=== PATIENT | female | born 2005 | race African-American/Black ===

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

== ENCOUNTER 2024-05-09 10:54 | Emergency (ER) | payer MEDICAID, SELFPAY ==
[2024-05-09 10:57] VITALS: BP 160/93; PULSE 93; RESP 16; TEMP 36.7; O2SAT 100
--- NOTE | 2024-05-09 11:18 | ED.ALLEREA ---
HPI - Allergic Reaction General Chief complaint: Allergic Reaction Stated complaint: Itching X 2 days Time Seen by Provider: 05/09/24 10:59 History of Present Illness HPI narrative: 18-year-old female presents to the emergency department for itching throughout her body for 2 days. Patient states she is itchy all over her face and extremities, back and abdomen. She states she has not seen any rashes or lesions, no oral lesions. She denies fever, nausea vomiting abdominal pain or other symptoms. States approximately 2 days ago before the onset of symptoms she bought new scrubs and is curious that this may be the source of her itching. States she took her scrubs off but her itching did not improve. States no one in her household has the same symptoms. She denies known exposures or changes in lotions, detergents medications etc.. She does state that she has been taking Zyrtec or Claritin without improvement. Related Data Allergies Allergy/AdvReac Type Severity Reaction Status Date / Time No Known Allergies Allergy Verified 01/21/23 22:00 Review of Systems Review of Systems: All systems reviewed & are unremarkable except as noted in HPI and below PMFSH Past Medical History Medical History Obesity (BMI 30-39.9) Obstructive sleep apnea Surgical History Surgical History No pertinent past surgical history Family History Family History Sibling Immunodeficiency Mother Healthy female Father Gunshot wound Social History Social History Social History: The patient lives at home with her mother and siblings. 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 Code status: Full code Surrogate decision maker: Mother Smoking status: Never smoker Alcohol intake: never Substance use: never Lack of Transportation: No Lack of Food: Never True Current Housing: I Have Housing Concerned About Future Housing: No Difficulty Paying Gas/Electric Bills: No Difficulty Paying for Meds: No Currently Unemployed: No Education: High School Diploma/GED Difficulty w/ Childcare or Family Care: No Living arrangements: with family Additional living arrangements comments: She lives with her mother and siblings. 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 Spiritual care concerns: No Exam Narrative: GENERAL: Well-appearing, well-nourished, and in no acute distress. HEAD: Normocephalic, atraumatic. EYES: No scleral icterus ENT: Nares clear, no rhinorrhea or epistaxis. Mucous membranes moist. no lesions to oropharynx NECK: Supple. CHEST: Clear to auscultation. No respiratory distress. HEART: Regular rate and rhythm. No murmur heard. Normal peripheral pulses. EXTREMITIES: Normal range of motion. No edema. SKIN: Excoriations throughout upper extremities. No hives or lesions, no rash throughout upper lower extremities, face her abdomen. No palmar lesions. No papules or vesicles, no vesicles or burrows and web spaces. no jaundice or scleral icterus NEURO: No focal deficits. Alert and oriented x3 Course Vital Signs Vital signs: Vital Signs Temperature 98.1 F 05/09/24 10:57 Pulse Rate 93 05/09/24 10:57 Respiratory Rate 16 05/09/24 10:57 Blood Pressure 160/93 H 05/09/24 10:57 Pulse Oximetry 100 05/09/24 10:57 Oxygen Delivery Room Air 05/09/24 10:57 Temperature 98.1 F 05/09/24 10:57 Pulse Rate 93 05/09/24 10:57 Respiratory Rate 16 05/09/24 10:57 Blood Pressure 160/93 H 05/09/24 10:57 Pulse Oximetry 100 05/09/24 10:57 Oxygen Delivery Room Air 05/09/24 10:57 MDM - Allergic Reaction MDM Narrative Medical decision making narrative: 18-year-old female pres
[2024-05-09] MEDS: hydrOXYzine HCL 25 MG TABLET PO (11:31)
[2024-05-09] MEDS: predniSONE 20 MG TABLET 60 MG PO (11:32)
== END 2024-05-09 11:38 | disposition home or self-care (01) ==
PROVIDERS: Emergency Provider Physician Assistant; PCP Pediatrics
DX: L29.9 Pruritus, unspecified (principal); G47.33 Obstructive sleep apnea (adult) (pediatric); E66.9 Obesity, unspecified
CPT/HCPCS: 99283; A9270; J7512

== ENCOUNTER 2025-03-22 18:39 | Emergency (ER) | payer BC, SELFPAY ==
--- OUTSIDE RECORDS SUMMARY | 2025-03-22 18:41 | XMS_ITS | Data Portability ---
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 Plan of Treatment Reminders Order Date Submit Date Provider Last Modified By Organization Details Last Modified Time Details Appointments None recorded . Lab hsv (1+2) igm, serum 2021 [facility] (Lab), [address] [place], [address], 3 18:39:47 hsv-1 igg Ab, serum 2021 022 [facility] (Lab), [address] [place], [address], 3 18:39:45 hsv-2 igg Ab, serum 2021 022 [facility] (Lab), [address] [place], [address], 3 18:39:45 hbcab (hepatit is B core Ab) igm, serum 2021 022 [facility] (Lab), [address] [place], [address], 3 18:39:46 HBsAg (hepatit is B surface Ag), serum 2021 022 [facility] (Lab), [address], [place], [address], 3 18:39:44 hepatiti s C virus Ab, serum 2021 [facility] (Lab), [address], [place], [address], 3 18:39:44 unlisted lab - HIV 1/2 antigen/ antibody , reflex confirma tion 2021 [facility] (Lab), [address], [place], [address], 3 18:39:43 RPR (rapid plasma reagin), serum 2021 [facility] (Lab), [address], [place], [address], 3 18:39:45 Referral None recorded . Procedures None recorded . Surgeries None recorded . Imaging None recorded . Medication Orders metronid azole 500 mg tablet 2021 devendra [facility][id number], [address], [place], [place], [id number], 3 13:56:52 Valtrex 1 gram tablet 2021 [email or web address] [facility] #[id number], [address], [place], [place], [id number], 2 12:17:03 Loestrin Fe 1/20 (28-Day) 1 mg-20 mcg (21)/75 mg (7) tablet 2021 [facility] #[id number], [address], [place], [place], [id number], 12:20:31 Patient TargetsNo targets recorded. Patient InstructionsNo instructions recorded. Reason for Referral None Reported. Results Created Date Observation Date Name Description Value Unit Range Abnormal Flag Note LastModifiedBy Organization Detail LastModifiedTime 09/07/20 22 09/07/2022 VAGIN ITIS/ VAGIN OSIS, DNA PROBE shaniqua sp. detection, direct probe Negati ve negati ve Not Available [facility] (Lab) [address], [place], [address], 09/13/2022 21:29:55 09/07/20 22 09/07/2022 VAGIN ITIS/ VAGIN OSIS, DNA PROBE gardnerella vag. detection, direct probe Positi ve negati ve abnormal Not Available [facility] (Lab) [address], [place], [address], 09/13/2022 21:29:55 09/07/20 22 09/07/2022 VAGIN ITIS/ VAGIN OSIS, DNA PROBE trichomonas vag. detection, direct probe Negati ve negati ve Not Available [facility] (Lab) [address], [place], [address], 09/13/2022 21:29:55 09/07/20 22 09/07/2022 CT/GC AND TRICH OMONA S VAGIN MARIA ELENA (RRNA ), SWAB chlamydia trachomatis, PCR Negati ve negati ve Not Available [facility] (Lab) [address], [place], [address], 09/13/2022 21:29:56 09/07/20 22 09/07/2022 CT/GC AND TRICH OMONA S VAGIN MARIA ELENA (RRNA ), SWAB neisseria gonorrhoeae, PCR Negati ve negati ve Not Available [facility] (Lab) [address], [place], [address], 09/13/2022 21:29:56 09/07/20 22 09/07/2022 CT/GC AND TRICH OMONA S VAGIN MARIA ELENA (RRNA ), SWAB trichomonas vaginalis ribosomal RNA (rrna) Negati ve negati ve Not Available [facility] (Lab) [address], [place], [address], 09/13/2022 21:29:56 09/07/20 22 09/07/2022 HSV TYPE 1, REFLE XED hsv 1 ISOLAT ED abnormal REFER ENCE RANGE : NOT ISOLA PHILIP perin eum Perfo rming Organ izati on Infor [facility] emergency department n: Site ID: EZ Name: [facility] , Addre ss: [id number] [place] [place] [facility] [place] [id number] Dire tor: Racheal chan MD,Ph D,SHELDON Not Available [facility] (Lab) [address] [place], [address], 09/13/2022 21:29:56 09/07/20 22 09/07/2022 HSV TYPE 2, REFLE XED hsv 2 NOT ISOLAT ED REFER ENCE RANGE : NOT ISOLA PHILIP perin eum Perfo ing Organ izati on [facility] n: Site ID: EZ Name: [facility] , Addre ss: [id number] [place] [facility] [place] [phone] Dire tor: Racheal chan MD,Ph D,SHELDON Not Available [facility] (Lab) [address] [place], [address], 09/13/2022 21:29:56 09/07/20 22 09/07/2022 CULTU RE: HERPE S SIMPL EX VIRUS (HSV) , REFLE X TYPIN G source PERINE UM Not Available [facility] (Lab) [address] [place], [address], 09/13/2022 21:29:57 09/07/20 22 09/07/2022 CULTU RE: HERPE S SIMPL EX VIRUS (HSV) , REFLE X TYPIN G hsv culture, body fluid ISOLAT ED abnormal REFER ENCE RANGE : NOT ISOLA PHILIP perin eum Perfo rming Organ izati on Infor mat n: Site ID: EZ Name: [facility] , Addre ss: [id number] [place] [id number] Direc tor: Racheal chan MD,Ph D,SHELDON Not Available [facility] (Lab) [address], [place], [address], 09/13/2022 21:29:57 09/07/20 22 09/07/2022 HIV 1/2 ANTIG EN/AN TIBOD Y, REFLE X CONFI RMATI ON HIV antigen/anti body Nonrea ctive nonrea ctive HIV-1 antig en and HIV-1 /HIV- 2 antib odies were not detec philip. No labor atory evide nce of HIV infec tion. Not Available [facility] (Lab) [address], [place], [address], 09/15/2022 18:39:43 09/07/20 22 09/07/2022 HEPAT ITIS B SURFA CE ANTIG EN hepatitis B surface antigen Non-re active non-re active This assay was perfo rmed using [facility] [employer] ratio n reage nts and test kits. Value s obtai franny with other assay metho ds or kits canno t be used inter gomez eably . Not Available [facility] (Lab) [address], [place], [address], 09/15/2022 18:39:44 09/07/20 22 09/07/2022 HEPAT ITIS C ANTIB DWAYNE SCREE N, REFLE X TO CONFI RMATI ON hepatitis C antibody Non-re active non-re active Antib odies to HCV Not Detec philip, does not exclu de the possi bilit y of expos ure to HCV. Not Available [facility] (Lab) [address], [place], [address], 09/15/2022 18:39:44 09/07/20 22 09/07/2022 HERPE S SMPLE X VIRUS TYPE 1 SPECI FIC AB, IGG herpes simplex virus 1 IgG Negati ve negati ve Not Available [facility] (Lab) [address], [place], [address], 09/15/2022 18:39:44 09/07/20 22 09/07/2022 HERPE S SMPLE X VIRUS TYPE 1 SPECI FIC AB, IGG herpes simplex virus 1 IgG, quant 0.3 ai 0.0-0. 8 Not Available [facility] (Lab) [address], [place], [address], 09/15/2022 18:39:44 09/07/20 22 09/07/2022 HERPE S SIMPL EX VIRUS TYPE 2 SPECI FIC AB, IGG herpes simplex virus 2 IgG Negati ve negati ve Not Available [facility] (Lab) [address], [place], [address], 09/15/2022 18:39:45 09/07/20 22 09/07/2022 HERPE S SIMPL EX VIRUS TYPE 2 SPECI FIC AB, IGG herpes simples virus 2 IgG, quant 0.3 ai 0.0-0. 8 Not Available [facility] (Lab) [address], [place], [address], 09/15/2022 18:39:45 09/07/20 22 09/07/2022 RPR SCREE N/REF DEXTER TITER /FTA RPR screen Nonrea ctive nonrea ctive Not Available [facility] (Lab) [address] [place], [address], 09/15/2022 18:39:45 09/07/20 22 09/07/2022 HEPAT ITIS B CORE, IGM hepatitis B core IgM antibody Negati ve negati ve Not Available [facility] (Lab) [address], [place], [address], 09/15/2022 18:39:46 09/07/20 22 09/07/2022 HSV 2 IGM TITER , REFLE XED hsv 2 IgM titer 1:20 high REFER ENCE RANGE : <1:20 Perfo rming Organ izati on Infor matio n: Site ID: EZ Name: [facility] , Addre ss: [id number] [place] [facility] [place] [id number] Dire tor: Racheal chan MD,Ph D,SHELDON Not Available [facility] (Lab) [address] [place], [address], 09/15/2022 18:39:46 09/07/20 22 09/07/2022 HSV 1 IGM TITER , REFLE XED hsv 1 IgM titer 1:20 high REFER ENCE RANGE : <1:20 Perfo rming Organ izati on Infor mat n: Site ID: EZ Name: [facility] [address] [facility] , Addre ss: [address] [place] [place] [facility] [place] [id number] Dire tor: Racheal chan MD,Ph D,SHELDON Not Available [facility] (Lab) [address], [place], [address], 09/15/2022 18:39:46 09/07/20 22 09/07/2022 HERPE S SIMPL EX VIRUS , 1 AND 2 IGM, IFA hsv 1 IgM screen POSITI VE abnormal Not Available [facility] (Lab) [address] [place], [address], 09/15/2022 18:39:47 09/07/20 22 09/07/2022 HERPE S SIMPL EX VIRUS , 1 AND 2 IGM, IFA hsv 2 IgM screen POSITI VE abnormal REFER ENCE RANGE : NEGAT NAY HSV IgM is detec table in serum from >90% of patie nts with prima ry HSV infec tion. Howev er, HSV IgM canno t be relia geno used to diagn ose acute /rece nt infec tion as it is also found in 30% of patie nts with react ivate d HSV. This test may not disti nguis h magdaleno en HSV-1 IgM and HSV-2 IgM due to cross -reac tivit y. To diagn ose acute genit al or mucos al HSV infec tion, direc t detec tion from a emmanuel n by cultu re or ana macedo ds is prefe rred. HSV IgM posit ivity shoul d be confi rmed by HSV-1 /2 type- speci fic IgG testi ng. This test was devel oped and its taylor tical perfo rmanc e anne cteri stics have been deter mined by [employer]. It has not been clear ed or appro yadi by FDA. This assay has been valid ated pursu ant to the CLIA regul ation s and is used for clini tesfaye purpo ses. Perfo rming Organ izati on Infor mathugo n: Site ID: EZ Name: [facility] , Addre ss: [id number] [facility] [place] [address] Direc tor: Racheal chan MD,Ph D,SHELDON Not Available [facility] (Lab) [address], [place], [address], 09/15/2022 18:39:47 Result Notes None recorded. Medical Equipment None Reported. Allergies No known drug allergies Medications Name Sig Start Date Stop Date Status Note LastModified by Organization Details LastModified Time metronidazole 500 mg tablet Take 1 tablet every 12 hours by oral route for 7 days. 12/13 completed Not Available Not Available Not Available Valtrex 1 gram tablet Take 1 tablet( s) every 12 hours by oral route for 7 days. 2023 active Not Available Not Available Not Avai lable levofloxacin 750 mg tablet active Not Available Not Availabl e Not Available [place] Fe 1/20 (28) 1 mg-20 mcg (21)/75 mg (7) tablet Take 1 tablet every day by oral route. active Not Available Not Available No t Available Vitals Date Recorded Body height Systolic And Diastolic Provider Name and Address Organization Details Last Updated DateTime 12/13/2022 160.02 cm 110/71 mm[Hg] Miladis Silverman [facility] 12/13/2022 13:56:48 Date Recorded Body height Body mass index (BMI) Body mass index (BMI) [Percentile] Per age and sex Body weight Systolic And Diastolic Provider Name and Address Organization Details Last Updated DateTime 2 160.02 cm 36.3 kg/m2 98 % 43391.4 4 g 117/72 mm[Hg] Miladis Silverman [facility] 2 11:36:50 Social History Question Answer Notes LastModified by Organizat ion Details LastModified Time Are You Blind Or Do You Have Difficulty Seeing? Yes Information not available 09/07/2022 In The 14 Days Before Symptom Onset, Have You Had Close Contact With A Laboratory-confirme d COVID-19 While That Case Was Ill? No Information n ot available 09/07/2022 In The 14 Days Before Symptom Onset, Have You Had Close Contact With A Person Who Is Under Investigation For COVID-19 While That Person Was Ill? No Information not available 09/07/2022 Have You Been To An Area Known To Be High Risk For COVID-19? No Information not available 09/07/2022 Are You Deaf Or Do You Have Serious Difficulty Hearing? No Information not available 09/07/2022 What Type Of Diet Are You Following? REGULAR Information n ot available 09/07/2022 What Is The Highest Grade Or Level Of School You Have Completed Or The Highest Degree You Have Received? [id number] Information not available 09/07/2022 Are There Any Guns Present In Your Home? No Information not available 09/07/2022 Do You Use Protection During Sex? Always Information not available 09/07/2022 Do You Use Your Seat Belt Or Car Seat Routinely? Yes Information not available 09/07/2022 Do You Have Smoke And Carbon Monoxide Detectors In Your Home? Yes Information not available 09/07/2022 Have You Used IV Drugs? No Information not available 09/07/2022 Do You Have Difficulty Walking Or Climbing Stairs? No Information not available 09/07/2022 Sex: Unknown Functional Status Question Answer Note LastModified by Organizat ion Details LastModified Time Do you use any illicit or recreational drugs? No Information not available 09/07/2022 What is your level of alcohol consumption? None Information not available 09/07/2022 Are you able to walk? YESWOREST Information not available 09/07/2022 Are you able to care for yourself? 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 No Information not available 09/07/2022 What is your exercise level? Occasional Information not available 09/07/2022 Mental Status None recorded. Family History Relationship Description Onset Age of this Age Resolved Age Notes LastModified by Organization Details LastModified Time Maternal Grandfather Diabetes mellitus vschroedter Not available 08/11 11:39:12 Maternal Grandfather Essential hypertension vschroedter Not available 1 11:39:27 Maternal Grandmother Diabetes mellitus vschroedter Not available 08/11 11:39:17 Maternal Grandmother Essential hypertension vschroedter Not available 1 11:39:32 Medical History Condition Response Allergies (Food, seasonal, environmental ) N Other N Breast Cancer N Drug/Latex Allergies/Reactions N Blood Transfusion N Dermatologic Disorders N Lung Disease N Defects or Inherited Disease N Breast Problem N Gestational Diabetes N Hematologic disorders N Anesthesia Complications N History of STI N Deep Vein Thrombosis N Polycystic ovary syndrome N Anxiety Disorder N Autoimmune disease N Arthritis N Infertility N Polyps N Acid Reflux (GERD) N History of abnormal pap N Cancer N Stroke N Varicosities N Neurologic/Epilepsy N Endometriosis N High Cholesterol N Headaches N Fibromyalgia N Kidney Disease N Heart Problems N Kidney or Bladder Problems N Thyroid Problems N GI Problems N Eating Disorder N Anemia N Art (IVF or FET) N Psychiatric Illness N Ovarian Cancer N Diabetes N Pulmonary (TB, Asthma) N Hepatitis/Liver Disease N No Past Medical History N Eczema N Urinary Tract Infection N Abuse/Domestic Violence N Asthma N Trauma/Violence N Depression/ depression N Heart Disease N Pre-Eclampsia N Hypertension N Osteoporosis N Thrombophilias N Gynecological History Statement/Question Response Flow Moderate Date of LMP 11/18/2022 Was last menstrual period normal Y STIs/STDs N HPV Vaccine Y Duration of Flow (days) 5 Current Control Method Condoms Are cycles usually normal Y Sexually Active? Y Menses Monthly Y Age of first menstrual cycle 9 Sexual Problems? N LMP Approximate Obstetrics History GPAL:G 0 P 0 0 0 0 Past Encounters Encounter ID Performer Location Encounter Start Date Encounter Closed Date Diagnosis/Indication Diagnosis SNOMED-CT Code Diagnosis ICD10 Code Diagnosis Note [id number] Humaira AmberbrendaSADE [place] [address] [address] 09/07/2022 11:22:07 09/07/2022 12:23:59 Genital herpes simplex 43590188 A60.9 Highly suspect primary genital HSV outbreak as well as BVHSV PCR sentSTI endocervic al testing sentVagini tis panel sentDiscus sed HSV in-depth. Handout given. Valtrex twice a day for 7 days. OTC lidocaine ointment to area TID until healed.Met ronidazole for BVR/B of medication discussed and accepted by patientAbs tain from IC with any active outbreaks, condom use encouraged otherwiseR TC to discuss labs in 2-3 weeks Vaginitis 72934975 N76.0 Venereal d isease screening 358057420 Z11.3 Sexually t ransmitted infectious disease 3484627 A64 Contracept ion care management 040915409 Z30.9 Discussed all control options in great detail. Pt would like to start ocp. She is aware of the risks and benefits. She does not have any medical condition that is contraindi cated with the use of estrogen containing control. Pt will start her pills on the first sunday following the start of her period. She is aware it is not effective for control the first month. She is also aware of the importance of taking at the same time every day. Encouraged use of condoms as the pill does not protect against STD's. Will return in 3 months for med check. Consent was read and signed. Pt verbalized understand ing.Rx sentRTC for med check in 3 monthsCons ent reviewed and signed Time spent in visit is a total of 45 mins with at least 50% of visit consisting of counseling and review of plan of care. [id number] SADE [place] [address] [address] 12/13/2022 13:42:58 12/13/2022 14:38:13 Contraception care management 136084608 Z30.9 Discussed all methodscon sidering IUD vs OCPshe has OCP at home, if she desires to start this she can start on first day of her next periodIf she desires kyleena IUD, RTC on days 1-5 of next period for insertion She has been counseled on all of the r/b/a of placement of an intrauteri ne device that include but are not limited to uterine perforatio n, injury to cervix, vagina, bladder, and bowel.Risk s of bleeding due to injury or increased irregular bleeding due to progestin effect of the device. Risks of infection would be increased within the first 21 days of placement with concommita nt cervicitis . She understand s that the device will need to be removed in this instance due to increased risk of Pelvic inflammato ry disease. Patient is aware she is at higher risk for STD and if contracted she could lose her fertility. Pt is aware that if occurs that she should contact office immediatel y to rule out ectopic which could be life threatenin g. IUD will also need to be removed and this could cause miscarriag e. Patient also informed that in the event her strings are absent or embedded at the time of removal she may need to have the IUD surgically removed. Time spent in visit is a total of 20 mins with at least 50% of visit consisting of counseling and review of plan of care. Health Concerns Section Related Observation LastModified by Organization Detai ls LastModified Time None Recorded Concern Status LastModified by Organization Details LastModified Time None Recorded Advance Directives Directive None Recorded Payers Insurance Date Sequence Insurance Name Policy Number Policy Loja Covered Member ID Loja Member ID Guarantor Name 12/13/2022 1 [facility] - DOS ON OR AFTER 21 (MEDICAID REPLACEMENT - HMO) Arya Gaston [id number] Arya Gaston Notes Date Note Type Note Provider Name and Address Organization Details Recorded Time 09/07/2022 text/html 17yo Presents fo r BC consultRecently became SA, using condomsNormal, monthly mensesVulvar irritation/rawness for the past 4 days. Very painful. Hurts when urine touches. Some vaginal discharge with an odor.Denies any fevers, chills, N/V, abdominal pains, or flank pains. SADE Evans [address], [place], [address], [facility] 09/07/2022 12:21:36 12/13/2022 text/html 17yopresents for med checknever started OCP, would like to discuss other options SADE Evans [address], [place], [address], [facility] 12/13/2022 14:37:06 OBGyn Episode No OBEpisode recorded.
--- OUTSIDE RECORDS SUMMARY | 2025-03-22 18:41 | XMS_ITS | Data Portability ---
Author Organization [facility] SI[facility]ennifer Banks Address [address] [place] [address] Assessment No assessment recorded. Plan of Treatment Reminders Order Date Submit Date Provider Last Modified By Organization Details Last Modified Time Details Appointments None record ed. Lab None record ed. Referral None record ed. Procedures None record ed. Surgeries None record ed. Imaging None record ed. Medication Orders None record ed. Patient TargetsNo targets recorded. Patient Instructions Encounter Date Encounter Id Patient Instructions Last Modified By Organization Details Last Modified Time 01/30/2025 [id number] Well Visit, Ages 18 to 65: Care Instructions Not available 01/30/2025 14:20:12 A healthy lifestyle: care instructions [email or web address] Not available 01/30/2025 14:20:12 Follow up with your PCP for routine care. [email or web address] Not available 01/30/2025 14:19:58 Reason for Referral None Reported. Problems No Known Problems Medical Equipment None Reported. Allergies No known drug allergies Medications Not known to be on any medication Vitals Date Recorded Body height Body mass index (BMI) Body mass index (BMI) [Percentile] Per age and sex Body weight Oxygen saturation Oxygen saturation in Arterial blood by Pulse oximetry Heart rate Respiratory rate Body temperature Systolic And Diastolic Provider Name and Address Organization Details Last Updated DateTime 165.1 cm 43.5 kg/m2 99 % [id number]. 31 g 100 % 100 % 80 /min 18 /min 98.3 [degF] 127/84 mm[Hg] Saida Foster MA [facility] 13:52:05 Social History Question Answer Notes LastModified by Organizat ion Details LastModified Time Tobacco Smoking Status Never Smoker Saida Foster MA null, [place] [facility] 01/30/2025 13:54:34 Do You Have An Advance Directive? Yes Information n ot available 01/30/2025 Are You Blind Or Do You Have Difficulty Seeing? Yes Information n ot available 01/30/2025 What Is Your Level Of Caffeine Consumption? Occasional Information not available 01/30/2025 In The 14 Days Before Symptom Onset, Have You Had Close Contact With A Laboratory-confirm ed COVID-19 While That Case Was Ill? No Information n ot available 01/30/2025 In The 14 Days Before Symptom Onset, Have You Had Close Contact With A Person Who Is Under Investigation For COVID-19 While That Person Was Ill? No Information not available 01/30/2025 Have You Been To An Area Known To Be High Risk For COVID-19? No Information not available 01/30/2025 Are You Deaf Or Do You Have Serious Difficulty Hearing? No Information not available 01/30/2025 What Type Of Diet Are You Following? REGULAR Information n ot available 01/30/2025 Are There Any Guns Present In Your Home? No Information not available 01/30/2025 What Was The Date Of Your Most Recent Tobacco Screening? 01/30/2025 Information not available 01/30/2025 How Many Children Do You Have? 0 Information not available 01/30/2025 Do You Use Protection During Sex? Usually Information not available 01/30/2025 What Is Your Relationship Status? Single Information not available 01/30/2025 Do You Use Your Seat Belt Or Car Seat Routinely? Yes Information not available 01/30/2025 Are You Sexually Active? Yes Information not available 01/30/2025 Do You Have Smoke And Carbon Monoxide Detectors In Your Home? Yes Information not available 01/30/2025 Are You Passively Exposed To Smoke? No Information no t available 01/30/2025 Do You Use Sunscreen Routinely? No Information not available 01/30/2025 Has Tobacco Cessation Counseling Been Provided? No Information not available 01/30/2025 Sex: Female Functional Status Question Answer Note LastModified by Organizat ion Details LastModified Time Do you use any illicit or recreational drugs? No Information not available 01/30/2025 Do you or have you ever used any other forms of tobacco or nicotine? No Information not available 01/30/2025 What is your level of alcohol consumption? Occasional Information not available 01/30/2025 Are you currently employed? No Information not available 01/30/2025 Are you able to care for yourself? Yes Information n ot available 01/30/2025 What is your exercise level? None Information not available 01/30/2025 Mental Status Question Answer Note LastModified by Organization D etails LastModified Time Do you feel stressed (tense, restless, nervous, or anxious, or unable to sleep at night)? [id number] Information not available 01/30/2025 Family History Relationship Description Onset Age of this Age Resolved Age Notes LastModified by Organization Details LastModified Time Father No current problems or disability [email or web address] Not available 01/30 13:54:12 Mother No current problems or disability [email or web address] Not available 01/30 13:54:12 Medical History Condition Response Coronary Artery Disease N Other N High Blood Pressure N Atrial Fibrillation N Thyroid Problems N Kidney or Bladder Problems N GI Problems N Depression N COPD N Blood Clots N Have you had a mammogram in the last yea r? N Skin Problems N Eating Disorder N Anemia N Heart Attack (DE) N Anxiety Disorder N Diabetes N Muscle, Joint, or Bone Problems N Arthritis N Seizures/Epilepsy N Have you had a colonoscopy in the last 1 0 years? N Acid Reflux (GERD) N Cancer N Stroke N Asthma N Allergies N Have you had a PSA blood test in the las t year? N ADHD N Substance Abuse N High Cholesterol N Hepatitis N Liver Disease N Schizophrenia N Headaches N Heart Failure N Osteoporosis N Gynecological History Statement/Question Response Flow Moderate Date of LMP 01/24/2025 Frequency of Cycle (Q days) 28 Menses Monthly Y Duration of Flow (days) 5 Age at Menarche 12 Current Control Method None Age at First Child 1 LMP Definite Obstetrics History GPAL:G 0 P 0 0 0 0 Immunizations Vaccine Type Date Status Note Provider Nam e and Address Organization Details Recorded Time influenza, split (incl. purified surface antigen) 6 completed Not Available [facility] 01/30/2025 12:42:00 influenza, unspecified formulation 6 completed Not Available [facility] 01/30/2025 12:42:00 influenza, split (incl. purified surface antigen) 8 completed Not Available [facility] 01/30/2025 12:42:00 Hep A, ped/adol, 2 dose 4 completed Not Available [facility] 01/30/2025 12:42:00 Tdap 5 completed Not Available [facility] 01/30/2025 12:42:00 meningococcal MCV4P 5 completed Not Available [facility] 01/30/2025 12:42:00 HPV9 6 completed Not Available [facility] 01/30/2025 12:42:00 HPV9 6 completed Not Available [facility] 01/30/2025 12:42:00 meningococcal MCV4P 0 completed Not Available [facility] 01/30/2025 12:42:00 HPV9 0 completed Not Available [facility] 01/30/2025 12:42:00 Influenza, split virus, quadrivalent, PF 0 completed Not Available [facility] 01/30/2025 12:42:00 COVID-19, mRNA, LNP-S, PF, 30 mcg/0.3 mL dose 1 completed Not Available [facility] 01/30/2025 12:42:00 COVID-19, mRNA, LNP-S, PF, 30 mcg/0.3 mL dose 1 completed Not Available [facility] 01/30/2025 12:42:00 Influenza, split virus, quadrivalent, PF 3 completed Not Available [facility] 01/30/2025 12:42:00 Tdap 5 completed Not Available [facility] 01/30/2025 12:42:00 DTP 4 completed EL[place]AS [place] [facility] 03/15/2017 15:27:29 DTP 5 completed Christie [place], [place], [place] [facility] 03/15/2017 15:27:34 DTP 5 completed Christie [place], [place] [facility] 03/15/2017 15:27:38 DTP 6 completed Christie [place], [place] [facility] 03/15/2017 15:27:45 DTP 9 completed Christie [place], [place] [facility] 03/15/2017 15:27:52 polio, unspecified formulation 4 completed Christie [place], [place] [facility] 03/15/2017 15:28:03 polio, unspecified formulation 5 completed Christie [place], [place] [facility] 03/15/2017 15:28:07 polio, unspecified formulation 5 completed Christie [place], [place] [facility] 03/15/2017 15:28:14 polio, unspecified formulation 9 completed Christie [place], [place] [facility] 03/15/2017 15:28:24 Hep B, unspecified formulation 4 completed Christie [place] [facility] 03/15/2017 15:28:35 Hep B, unspecified formulation 4 completed Christie [place] [facility] 03/15/2017 15:28:40 Hep B, unspecified formulation 5 completed Christie [place], [place] [facility] 03/15/2017 15:28:45 Hep B, unspecified formulation 5 completed Christie [place], [place] [facility] 03/15/2017 15:28:55 Hib, unspecified formulation 4 completed Christie [place] [facility] 03/15/2017 15:29:11 Hib, unspecified formulation 5 completed Christie [place], [place] [facility] 03/15/2017 15:29:15 Hib, unspecified formulation 5 completed Christie EL[place]AS [place] [facility] 03/15/2017 15:29:20 Hib, unspecified formulation 6 completed EL[place]AS [place] [facility] 03/15/2017 15:29:24 MMR 5 completed Christie [place] [facility] 03/15/2017 15:29:45 MMR 9 completed Christie [place] [facility] 03/15/2017 15:29:50 varicella 5 completed Christie [place] [facility] 03/15/2017 15:30:02 varicella 9 completed [place] [facility] 03/15/2017 15:30:06 Pneumococcal conjugate PCV 13 4 completed Christie [place] [facility] 03/15/2017 15:30:22 Pneumococcal conjugate PCV 13 5 completed Christie EL[place] [facility] 03/15/2017 15:30:26 Pneumococcal conjugate PCV 13 5 completed EL[place] [facility] 03/15/2017 15:30:30 Pneumococcal conjugate PCV 13 5 completed [place] [facility] 03/15/2017 15:30:35 Hep A, ped/adol, 2 dose 6 completed Christie [place] [facility] 03/15/2017 15:30:49 Hep A, ped/adol, 2 dose 7 completed Christie [place]AS[place] [facility] 03/15/2017 15:30:56 influenza, unspecified formulation 6 completed [place] [facility] 03/15/2017 15:31:08 Past Encounters Encounter ID Performer Location Encounter Start Date Encounter Closed Date Diagnosis/Indication Diagnosis SNOMED-CT Code Diagnosis ICD10 Code Diagnosis Note [id number] DEREK ELIZONDO NP [facility] [address] [place] [address] 01/30/2025 12:37:54 02/03/2025 09:29:16 Obese class III 240697254 E66.813 Physical examination 588 0005 Z00.00 School physical form completed without restrictio ns, signed, and a copy was made. Health Concerns Section Related Observation LastModified by Organization Detai ls LastModified Time None Recorded Concern Status LastModified by Organization Details LastModified Time None Recorded Advance Directives Directive Y: Payers Insurance Date Sequence Insurance Name Policy Number Policy Loja Covered Member ID Loja Member ID Guarantor Name 01/30/2025 1 [facility] [id number] [facility] [id number] [facility] Notes Date Note Type Note Provider Name and Address Organization Details Recorded Time 01/30/2025 text/html 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 She denied chronic health problems or home medications. Denied acute complaints. DEREK ELIZONDO NP Attn: Accounting,[address] [facility], [place], [address], [facility] 01/30/2025 20:22:03 OBGyn Episode No OBEpisode recorded.
[2025-03-22 18:58] VITALS: BP 153/105; PULSE 86; RESP 16; TEMP 37; O2SAT 100
--- NOTE | 2025-03-22 22:07 | PC.NURSE ---
Patient called for room assignment. No answer. Will call again.
--- NOTE | 2025-03-22 22:42 | PC.NURSE ---
Patient called again for room assignment, no answer and not seen in waiting room. Patient marked as left without being seen triaged.
== END 2025-03-22 22:47 | disposition left against medical advice (07) ==
LOC: ANHED 22:44
PROVIDERS: PCP Pediatrics
DX: H92.01 Otalgia, right ear (principal)
CPT/HCPCS: 99199

== ENCOUNTER 2025-03-23 12:09 | Emergency (ER) | payer BC, SELFPAY ==
--- NOTE | 2025-03-23 12:20 | ED_ITS ---
HPI - Ear Problem General Chief complaint: Ear Stated complaint: Right Ear Irritation Time Seen by Provider: 03/23/25 12:21 Source: patient Mode of arrival: ambulatory Limitations: no limitations History of Present Illness HPI Narrative: 19 y/o female presented for c/o right ear pain x5 days. Pain is described as pressure. Pt endorses muffled hearing. Denies tinnitus, dizziness, n/v/d/f/c. Using OTC ear drops for symptoms but says it is making it worse. Admits to swimming 03/13. MD Complaint: ear pain Related Data Allergies Allergy/AdvReac Type Severity Reaction Status Date / Time No Known Allergies Allergy Verified 03/23/25 12:24 Review of Systems Review of Systems: CONSTITUTIONAL: Denies malaise, chills, or fever. EYES: Denies visual changes, redness, or discharge. ENT: Denies rhinorrhea, congestion, sinus pain, and sore throat. Reports ear pain CARDIOVASCULAR: Denies chest pain, palpitations, or edema. RESPIRATORY: Denies cough or dyspnea. GASTROINTESTINAL: Denies abdominal pain, nausea, vomiting, diarrhea SKIN: Denies rash or itching. MUSCULOSKELETAL: Denies myalgia. NEUROLOGIC: Denies headache. All systems reviewed & are unremarkable except as noted in HPI and below PMFSH Past Medical History Medical History Obesity (BMI 30-39.9) Obstructive sleep apnea Surgical History Surgical History No pertinent past surgical history Family History Family History Sibling Immunodeficiency Mother Healthy female Father Gunshot wound Social History Social History Social History: The patient lives at home with her mother and siblings. 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 Code status: Full code Surrogate decision maker: Mother Smoking status: Never smoker Alcohol intake: never Substance use: never Lack of Transportation: No Lack of Food: Never True Current Housing: I Have Housing Concerned About Future Housing: No Difficulty Paying Gas/Electric Bills: No Difficulty Paying for Meds: No Currently Unemployed: No Education: High School Diploma/GED Difficulty w/ Childcare or Family Care: No Living arrangements: with family Additional living arrangements comments: She lives with her mother and siblings. 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 Spiritual care concerns: No Comments At time of signature, agree with nursing past medical, surgical, social and family history. There is no relevant family history pertinent to the presenting complaint Exam Narrative: GENERAL: Well-appearing EYES: PERRLA, conjunctivae clear ENT: Nares clear. Mucous membranes moist. Right canal erythematous with swelling and tenderness, canal not occluded, no drainage, no tragal tenderness. Visualized portion of the Right TM appears erythematous and dull. Left TM normal light reflex, no canal swelling or erythema noted. NECK: Supple. No lymphadenopathy CHEST: Clear to auscultation, breath sounds equal HEART: Regular rate and rhythm. SKIN: Warm, dry, no rash. NEURO: Alert and oriented x3. PSYCH: Normal mood and affect Course Course Emergency Course: Patient is aware of diagnosis, understands and agrees to treatment plan. Anticipatory guidance given. Patient agrees to follow-up as directed and is aware of reasons to seek care at the emergency department. Portions of this record may have been created with voice recognition software Level of Care: Express Care Visit Vital Signs Vital signs: Reviewed Medical Decision Making MDM Narrative Medical decision making narrative: Discussed physical exam findings consistent with otitis externa. The visualized portion of the TM appears red, will also cover for OM. v/u. Advised supportive measures and signs/symptoms to go to the ER. Patient is appropriate for outpatient treatment and follow-up. Differential Diagnosis Differential Diagnosis: Coronavirus, strep pharyngitis, allergic rhinitis, upper respiratory tract infection, sinusitis, rhinosinusitis, nasopharyngitis, viral pharyngitis, otitis media, otitis externa, eustachian tube dysfunction, foreign body, cerumen impaction. Discharge Plan Discharge Clinical Impression: Otitis externa Patient Disposition: Home Condition: Stable Instructions: Antibiotic Form, Swimmer's Ear (ED) Additional Instructions: Swimmer's ear is an infection in the outer ear canal, which runs from your eardrum to the outside of your head. It's often caused by water that remains in your ear, creating a moist environment that encourages the growth of bacteria. Take antibiotic drops as directed. Tylenol and ibuprofen every 8 hours as needed to reduce fever, pain Avoid water or anything into the ear for one week Follow up with your personal physician within 3-5days. If your symptoms persist, change or worsen significantly, go to the emergency department for further evaluation. Patient Language: Mohawk Prescriptions: New amoxicillin-pot clavulanate 875-125 mg tablet 1 tablet PO Q12H 7 Days Qty: 14 0RF ciprofloxacin-dexamethasone 0.3-0.1 % drops,suspension 4 drp RIGHT EAR Q12H 7 Days Qty: 7.5 0RF Follow-up/Referrals: Los,MD Rajesh [Primary Care Provider] - Time of Disposition: 12:29
[2025-03-23 12:22] VITALS: BP 135/88; PULSE 92; RESP 16; TEMP 36.6; O2SAT 100
== END 2025-03-23 12:33 | disposition home or self-care (01) ==
PROVIDERS: Emergency Provider Nurse Practitioner Family; PCP Pediatrics
DX: H60.91 Unspecified otitis externa, right ear (principal); E66.9 Obesity, unspecified; Z68.41 Body mass index [BMI] 40.0-44.9, adult
CPT/HCPCS: 99213; G0463